=== PATIENT | female | born 1985 | race Caucasian/White ===

== ENCOUNTER 2016-08-27 11:36 | Emergency (ER) | payer SELFPAY ==
[~2016-08-27] VITALS: Ht 152.4 cm; Wt 62.2 kg
[2016-08-27 11:55] VITALS: BP 112/76; PULSE 94; RESP 12; TEMP 99; O2SAT 99
--- NOTE | 2016-08-27 12:02 | PD ---
HPI Chief Complaint: Reel Man Problem/Complaint Time Seen by Provider: 11:44 Travel History International Travel<30 days: No Contact w/Intl Traveler<30days: No Traveled to known affect area: No History of Present Illness HPI The patient is a 30-year-old female who presents emergency Department for vaginal discharge. The patient thinks she had a miscarriage 3-1/2 weeks ago , states that she was approximately 6 weeks when she developed vaginal bleeding and then passed what she thought were probably secondary infection. The patient states that her vaginal bleeding had resolved and she was doing well until she developed vaginal discharge 2 days ago. The vaginal discharge is white and is associated with a foul smell. She does have a history of similar discharge in the past secondary to Trichomonas. The patient states she recently found out her significant other was having an affair, she is worried that she has associated transmitted infection. She denies any dysuria, frequency, or urgency. PFSH Past Medical History Bipolar Disorder: Yes Anxiety: Yes Depression: Yes Diabetes: No Diminished Hearing: No Psychiatric: Yes (BIPOLAR, PTSD, CUTTING) Immunizations Current: Yes Schizophrenia: Yes ?: Not LMP: june 14 Menopausal: No : 5 Para: 2 Miscarriage: 0 : 3 Dilation and Curettage (D&C): Yes (X1) Social History Alcohol Use: No Tobacco Use: Yes Substance Use: No Allergies-Medications (Allergen,Severity, Reaction): Coded Allergies: Latex (Verified Allergy, Mild, VAGINAL BACTERIAL INFECTION, 06/14/15) ONLY WITH CONDOMS Penicillin (Verified Allergy, Mild, Rash, 06/14/15) Reported Meds & Prescriptions Reported Meds & Active Scripts Active No Active Prescriptions or Reported Medications Review of Systems Except as stated in HPI: all other systems reviewed are Neg General / Constitutional: No: Fever HENT: Positive: Other (cervical lymphadenopathy) Cardiovascular: No: Chest Pain or Discomfort Respiratory: No: Shortness of Breath Gastrointestinal: No: Nausea, Vomiting, Abdominal Pain Genitourinary: Positive: Pelvic Pain, Discharge, No: Dysuria, Vaginal Bleeding Physical Exam Narrative GENERAL: Awake, alert, pleasant 30-year-old female who appears her stated age and is in no acute respiratory distress. SKIN: Focused skin assessment warm/dry. HEAD: Atraumatic. Normocephalic. EYES: No injection or drainage. ENT: No nasal bleeding or discharge. Mucous membranes pink and moist. NECK: Trachea midline. No JVD. GASTROINTESTINAL: Abdomen soft, non-tender, nondistended. No rebound tenderness. Back: No CVA tenderness. Pelvic: Exam was performed in the presence of a female nurse. External examination reveals no rashes or lesions. Speculum examination reveals scant thin white discharge in vaginal wall. Cervix is approximate 1 cm x 0.5 cm, there are some cervical changes with mild erythema from the 10 o'clock position to the 2 o'clock position. MUSCULOSKELETAL: No obvious deformities. No clubbing. No cyanosis. No edema. NEUROLOGICAL: Awake and alert. No obvious cranial nerve deficits. Motor grossly within normal limits. Normal speech. PSYCHIATRIC: Appropriate mood and affect; insight and judgment normal. Data Data Last Documented VS Vital Signs Date Time Temp Pulse Resp B/P Pulse Ox O2 Delivery O2 Flow Rate FiO2 08/27/16 11:55 99.0 94 12 112/76 99 Orders Gc And Chlamydia Pcr (08/27/16 11:49) Wet Prep Profile (08/27/16 11:49) Urinalysis - C+S If Indicated (08/27/16 11:49) Ed Urine Pregnancytest Poc (08/27/16 11:49) Azithromycin Powd Pack (Zithromax Powd P (08/27/16 13:30) Ceftriaxone Inj (Rocephin Inj) (08/27/16 13:30) Lidocaine 1% Inj (50 Ml) (Xylocaine 1% I (08/27/16 13:30) Labs Laboratory Tests Test 08/27/16 08/27/16 12:00 13:15 Urine Collection Type CLEAN CATCH Urine Color YELLOW Urine Turbidity CLEAR Urine pH 6.5 Urine Specific [place] 1.006 Urine Protein NEG mg/dL Urine Glucose (UA) NEG mg/dL Urine Ketones NEG mg/dL Urine Occult Blood NEG Urine Nitrite NEG Urine Bilirubin NEG Urine Leukocyte Esterase TRACE Urine WBC 0-2 /hpf Urine Squamous Epithelial 0-5 /hpf Cells Microscopic Urinalysis Comment CULT NOT INDICATED Urine Collection Time 12:00 Clue Cells (Wet Prep) NONE SEEN Vaginal Trichomonas (Wet Prep) NONE SEEN Vaginal Yeast (Wet Prep) NONE SEEN MDM Medical Decision Making Medical Screen Exam Complete: Yes Emergency Medical Condition: Yes Medical Record Reviewed: Yes Differential Diagnosis Differential diagnosis includes endometriosis, PID, cervicitis, vaginitis, trismus, Bactrim vaginosis, yeast infection, UTI, . Narrative Course A pelvic exam was performed in the presence of a female nurse. Bedside UA test was obtained. UA was sent to lab. Wet prep and gonorrhea/ chlamydia were sent to lab. The patient was advised that she has an abnormal appearing cervix from the 10:00 to 2 o'clock position, does have a history of abnormal Pap smears in the past. She is advised to follow-up with a ribbing machine operator for a Pap smear. Patient states she could not wait for the wet prep results, therefore, we will call if wet prep is positive. I do discussion regarding possibility of gonorrhea and Chlamydia, patient would like to be treated. Therefore, she was administered Rocephin 250 mg IM and Zithromax 1 g by mouth. Diagnosis Primary Impression: Vaginal discharge Referrals: [facility] call for appointment Patient Instructions: General Instructions Additional Instructions: Follow-up at the [facility]. Return if symptoms worsen or progress. Med/Other Pt SpecificInfo: No Change to Meds Scripts No Active Prescriptions or Reported Meds Disposition: 01 DISCHARGE HOME Condition: Stable Eamon Wang MD Aug 27, 2016 12:02
[2016-08-27 12:23] LABS: BLOOD, URINE NEG (NEG); GLUCOSE,URINE NEG (NEG); KETONE, URINE NEG (NEG); NITRITE,URINE NEG (NEG); PH, URINE 6.5 (5.0-8.5)
[2016-08-27 12:27] LABS: METHOD OF COLLECTION CLEAN CATCH; URINE COLOR YELLOW (YELLW/STRAW)
[2016-08-27 12:28] LABS: COMMENT (UR) CULT NOT INDICATED; CULTURE IF INDICATED CULT NOT INDICATED; SQUAMOUS EPITHELIAL CELL URINE 0-5 /hpf (0-5); WBC, URINE 0-2 /hpf (0-5)
[2016-08-27] MEDS ORDERED: cefTRIAXone 250 MG VIAL IM ONE (13:30)
[2016-08-27] MEDS ORDERED: AZITHROMYCIN PWD FOR SUSP 1 GM PACKET PO ONE (13:30)
[2016-08-27] MEDS ORDERED: LIDOCAINE HCL 1% 50 ML VIAL IM ONE (13:30)
[2016-08-27 13:57] VITALS: BP 122/72
[2016-08-27 17:18] LABS: CHLAMYDIA PCR NOT DETECTED (NOT DETECT); NEISSERIA PCR NOT DETECTED (NOT DETECT)
== END 2016-08-27 14:44 | disposition home or self-care (01) ==
LOC: PHED 11:36
DX: N89.8 Other specified noninflammatory disorders of vagina (principal); Z72.0 Tobacco use; Z86.59 Personal history of other mental and behavioral disorders
CPT/HCPCS: 81001; 84703; 87210; 87491; 87591; 96372; 99284; J0696

== ENCOUNTER 2017-02-17 13:56 | Emergency (ER) | payer SELFPAY ==
[~2017-02-17] VITALS: Ht 152.4 cm; Wt 61.0 kg
[2017-02-17 14:01] VITALS: BP 120/70; PULSE 121; RESP 16; TEMP 99; O2SAT 99
[2017-02-17] MEDS ORDERED: BENZ100 PO (14:39)
[2017-02-17] MEDS ORDERED: AZIT250T3 PO (14:39)
--- NOTE | 2017-02-17 14:43 | PD ---
HPI Chief Complaint: Cold / Flu Symptoms Time Seen by Provider: 14:21 Travel History International Travel<30 days: No Contact w/Intl Traveler<30days: No Traveled to known affect area: No History of Present Illness HPI 31-year-old female here with productive cough and colored sputum. She reports symptoms began approximate 7-10 days ago with body aches, fever, cough. The colored sputum started several days ago. Symptoms severity is moderate. No aggravating or alleviating factors. PFSH Past Medical History Bipolar Disorder: Yes Anxiety: Yes Depression: Yes Diabetes: No Diminished Hearing: No Psychiatric: Yes (BIPOLAR, PTSD, CUTTING) Immunizations Current: Yes Schizophrenia: Yes Tetanus Vaccination: < 5 Years Influenza Vaccination: No ?: Not LMP: 02/03/17 Menopausal: No : 5 Para: 2 Miscarriage: 0 : 3 Dilation and Curettage (D&C): Yes (X1) Social History Alcohol Use: No Tobacco Use: Yes (/2 PPD) Substance Use: No Allergies-Medications (Allergen,Severity, Reaction): Coded Allergies: latex (Unverified Allergy, Mild, VAGINAL BACTERIAL INFECTION, 02/17/17) ONLY WITH CONDOMS penicillin G (Unverified Allergy, Mild, Rash, 02/17/17) Reported Meds & Prescriptions Reported Meds & Active Scripts Active Tessalon Perles (Benzonatate) 100 Mg Cap 200 Mg PO TID PRN Azithromycin 250 Mg Tab 250 Mg PO DIRECTED Take 2 tabs (500 mg) on day 1 then 1 tab daily x 4 days. Review of Systems Except as stated in HPI: all other systems reviewed are Neg General / Constitutional: Positive: Fever Eyes: No: Visual changes HENT: No: Headaches Cardiovascular: No: Chest Pain or Discomfort Respiratory: Positive: Cough Gastrointestinal: No: Abdominal Pain Genitourinary: No: Dysuria Physical Exam Narrative GENERAL: alert female. non toxic appearing. SKIN: Warm and dry. HEAD: Normocephalic. EYES: No injection or drainage. THROAT: Pharyngeal erythema. No tonsillar hypertrophy or exudate. Uvula is midline. Airway is patent. NECK: Supple, trachea midline. No meningismus CARDIOVASCULAR: Regular rate and rhythm RESPIRATORY: Breath sounds equal bilaterally. No accessory muscle use. Rhonchorous cough. GASTROINTESTINAL: Abdomen soft, non-tender, nondistended. MUSCULOSKELETAL: No cyanosis, or edema. BACK: Nontender without obvious deformity. No CVA tenderness. Data Data Last Documented VS Vital Signs Date Time Temp Pulse Resp B/P (MAP) Pulse Ox O2 Delivery O2 Flow Rate FiO2 02/17/17 14:18 Room Air 02/17/17 14:01 99.0 121 16 120/70 (87) 99 MDM Medical Decision Making Medical Screen Exam Complete: Yes Emergency Medical Condition: Yes Differential Diagnosis Influenza, bronchitis, pneumonia, strep pharyngitis Narrative Course 31-year-old female with productive cough, fever, colored sputum for several days. Symptom onset has been greater than 10 days. Patient has a rhonchorous sounding cough. She'll be treated with azithromycin Diagnosis Primary Impression: Bronchitis Referrals: Primary Care Physician Departure Forms: Tests/Procedures, Work Release Enter return to work date: Feb 20, 2017 Additional Instructions: Tylenol and ibuprofen for body aches and fever. Stable hydrated by drinking plenty of fluids. Scripts Benzonatate (Tessalon Perles) 100 Mg Cap 200 MG PO TID Y for COUGH, #14 CAP 0 Refills Prov: Sharda Zimmerman 02/17/17 Azithromycin (Azithromycin) 250 Mg Tab 250 MG PO DIRECTED for Infection, #6 TAB 0 Refills Take 2 tabs (500 mg) on day 1 then 1 tab daily x 4 days. Prov: Sharda Zimmerman 02/17/17 Disposition: 01 DISCHARGE HOME Condition: Stable Sharda Zimmerman Feb 17, 2017 14:43
== END 2017-02-17 14:51 | disposition home or self-care (01) ==
LOC: PHEFT 13:56
DX: J40 Bronchitis, not specified as acute or chronic (principal); F20.9 Schizophrenia, unspecified; F31.9 Bipolar disorder, unspecified; F43.10 Post-traumatic stress disorder, unspecified; F17.200 Nicotine dependence, unspecified, uncomplicated
CPT/HCPCS: 99284

== ENCOUNTER 2017-04-01 18:19 | Emergency (ER) | payer MEDICAID ==
[~2017-04-01] VITALS: Ht 152.4 cm; Wt 62.1 kg
[~2017-04-01 18:19] MED LIST: AZIT250T3 PO; BENZ100 PO
[2017-04-01 18:29] VITALS: BP 128/63; PULSE 79; RESP 20; TEMP 98.7; O2SAT 99
--- NOTE | 2017-04-01 19:29 | PD ---
HPI Chief Complaint: Flank/Kidney Pain Time Seen by Provider: 19:13 Travel History International Travel<30 days: No Contact w/Intl Traveler<30days: No Traveled to known affect area: No History of Present Illness HPI The patient is a 31-year-old female who presents to the emergency department for low back pain, pelvic pain, dysuria, and discharge of 3 weeks' duration. The patient complains of bilateral lower back pain, lower abdominal discomfort and pelvic discomfort. She also complains of white vaginal discharge , has a history of similar discharge in the past with a diagnosis of Trichomonas. The patient is sexually active, no condoms or control, she is . She also complains of dysuria, frequency, and urgency. She denies any nausea or vomiting. The last menstrual cycle was at the end of February. Symptoms are moderate. There are no alleviating or exacerbating factors. She denies any associated fever, chills, or sweats. PFSH Past Medical History Bipolar Disorder: Yes Anxiety: Yes Depression: Yes Diabetes: No Diminished Hearing: No Psychiatric: Yes (BIPOLAR, PTSD, CUTTING) Immunizations Current: Yes Schizophrenia: Yes ?: Unknown Menopausal: No : 5 Para: 2 Miscarriage: 0 : 3 Dilation and Curettage (D&C): Yes (X1) Social History Alcohol Use: No Tobacco Use: Yes (1/2 PPD) Substance Use: No Allergies-Medications (Allergen,Severity, Reaction): Coded Allergies: latex (Unverified Allergy, Mild, VAGINAL BACTERIAL INFECTION, 04/01/17) ONLY WITH CONDOMS penicillin G (Unverified Allergy, Mild, Rash, 04/01/17) Reported Meds & Prescriptions Reported Meds & Active Scripts Active Tessalon Perles (Benzonatate) 100 Mg Cap 200 Mg PO TID PRN Azithromycin 250 Mg Tab 250 Mg PO DIRECTED Take 2 tabs (500 mg) on day 1 then 1 tab daily x 4 days. Review of Systems Except as stated in HPI: all other systems reviewed are Neg General / Constitutional: No: Fever Gastrointestinal: No: Nausea, Vomiting, Abdominal Pain Genitourinary: Positive: Urgency, Frequency, Dysuria, Pelvic Pain, Discharge, No: Vaginal Bleeding Skin: No Rash Physical Exam Narrative GENERAL: Awake, alert, nontoxic-appearing 31-year-old female who appears her stated age and is in no acute respiratory distress. SKIN: Focused skin assessment warm/dry. HEAD: Atraumatic. Normocephalic. EYES: No injection or drainage. GASTROINTESTINAL: Abdomen soft, mild suprapubic discomfort. No guarding or rigidity. Back: No CVA tenderness. Genitourinary: The exam was performed in the presence of a female nurse. External examination reveals no rashes or lesions. Speculum examination reveals scant thin white discharge in vaginal vault. Cervix is fish mouthed, mild cervical changes at 9 o'clock position with erythema. Mild cervical motion tenderness. No adnexal tenderness. MUSCULOSKELETAL: No obvious deformities. No clubbing. No cyanosis. No edema. NEUROLOGICAL: Awake and alert. No obvious cranial nerve deficits. Motor grossly within normal limits. Normal speech. PSYCHIATRIC: Appropriate mood and affect; insight and judgment normal. Data Data Last Documented VS Vital Signs Date Time Temp Pulse Resp B/P (MAP) Pulse Ox O2 Delivery O2 Flow Rate FiO2 04/01/17 18:29 98.7 79 20 128/63 (84) 99 Orders Orders Gc And Chlamydia Pcr (04/01/17 19:22) Wet Prep Profile (04/01/17 19:22) Urinalysis - C+S If Indicated (04/01/17 19:22) Ed Urine Pregnancytest Poc (04/01/17 19:22) Azithromycin Powd Pack (Zithromax Powd P (04/01/17 20:30) Rocephin 250mg Vial Im X 1 (04/01/17 20:30) Lidocaine 1% Inj (50 Ml) (Xylocaine 1% I (04/01/17 20:30) Labs Laboratory Tests Test 04/01/17 19:28 04/01/17 19:45 Urine pH 6.5 Urine Protein NEG mg/dL Urine Glucose (UA) NEG mg/dL Urine Ketones NEG mg/dL Urine Occult Blood NEG Urine Nitrite NEG Urine Bilirubin NEG Urine Leukocyte Esterase NEG Clue Cells (Wet Prep) NONE SEEN Vaginal Trichomonas (Wet Prep) NONE SEEN Vaginal Yeast (Wet Prep) NONE SEEN MDM Medical Decision Making Medical Screen Exam Complete: Yes Emergency Medical Condition: Yes Medical Record Reviewed: Yes Interpretation(s) Laboratory Tests Test 04/01/17 19:28 04/01/17 19:45 Urine pH 6.5 Urine Protein NEG mg/dL Urine Glucose (UA) NEG mg/dL Urine Ketones NEG mg/dL Urine Occult Blood NEG Urine Nitrite NEG Urine Bilirubin NEG Urine Leukocyte Esterase NEG Clue Cells (Wet Prep) NONE SEEN Vaginal Trichomonas (Wet Prep) NONE SEEN Vaginal Yeast (Wet Prep) NONE SEEN Differential Diagnosis Differential diagnosis includes PID, cervicitis, UTI, vaginitis, pyelonephritis , ectopic , . Narrative Course UA was sent to lab. UA bedside test was obtained. A pelvic exam was performed, gonorrhea/PCR was sent to lab and prep was sent to lab. Bedside UA test was negative. Wet prep was negative. The patient has pelvic pain 3 weeks duration, will be treated for possible cervicitis with Rocephin and Zithromax. Gonorrhea and chlamydia are pending. She is advised to follow- up with her primary physician and/or the [facility]. Diagnosis Primary Impression: Pelvic pain in female Referrals: [facility] Patient Instructions: General Instructions Additional Instructions: Follow-up with your primary physician. Return if symptoms worsen or progress. Follow-up with the women's care clinic. Follow-up with a hospital television rental clerk for outpatient Pap smear. Med/Other Pt SpecificInfo: No Change to Meds Disposition: 01 DISCHARGE HOME Condition: Stable Eamon Wang MD Apr 01, 2017 19:29
[2017-04-01 19:58] LABS: BILIRUBIN, URINE NEG (NEG); BLOOD, URINE NEG (NEG); GLUCOSE,URINE NEG (NEG); KETONE, URINE NEG (NEG); NITRITE,URINE NEG (NEG); PH, URINE 6.5 (5.0-8.5); URINE LEUKOCYTE ESTERASE NEG (NEG)
[2017-04-01] MEDS ORDERED: AZITHROMYCIN PWD FOR SUSP 1 GM PACKET PO ONE (20:30)
[2017-04-01] MEDS ORDERED: LIDOCAINE HCL 1% 50 ML VIAL IM ONE (20:30)
[2017-04-01] MEDS ORDERED: cefTRIAXone 250 MG VIAL IM ONE (20:30)
[2017-04-01 20:39] LABS: URINE COLOR YELLOW (YELLW/STRAW); WBC, URINE 0-2 /hpf (0-5)
[2017-04-01] MEDS ORDERED: LIDOCAINE HCL 1% PF 5 ML AMPULE ONE (20:45)
[2017-04-01 21:35] VITALS: BP 130/78
[2017-04-02] MEDS ORDERED: DOXY100C PO (15:25)
[2017-04-02] MEDS ORDERED: HYDR-3516 PO (15:25)
== END 2017-04-01 21:39 | disposition home or self-care (01) ==
LOC: PHED 18:19
DX: R10.2 Pelvic and perineal pain (principal); N89.8 Other specified noninflammatory disorders of vagina; M54.5 Low back pain; R30.0 Dysuria; R35.0 Frequency of micturition; R39.15 Urgency of urination; F17.200 Nicotine dependence, unspecified, uncomplicated; Z86.59 Personal history of other mental and behavioral disorders
CPT/HCPCS: 81001; 84703; 87210; 87491; 87591; 96372; 99284; J0696

== ENCOUNTER 2017-04-02 12:35 | Emergency (ER) | payer MEDICAID ==
[~2017-04-02] VITALS: Ht 152.4 cm; Wt 61.7 kg
[2017-04-02 12:39] VITALS: BP 133/85; PULSE 90; RESP 18; TEMP 98.3; O2SAT 100
--- NOTE | 2017-04-02 13:20 | PD ---
HPI Chief Complaint: Abdominal Pain Time Seen by Provider: 13:06 Travel History International Travel<30 days: No Contact w/Intl Traveler<30days: No Traveled to known affect area: No History of Present Illness HPI This 31-year-old female is complaining of lower abdominal pain. She's been having low back pain and lower abdominal pain for about 3 weeks. She was seen last night in the emergency department. Wet prep profile was negative as well as gonorrhea and chlamydia. It was thought that she had PID and she was given Rocephin and Zithromax. She says the pain is not any better. She is having bilateral lower abdominal pain and pain in the back. She is 9 para 2. She started having some vaginal bleeding today. It is a bit early for her period. PFSH Past Medical History Bipolar Disorder: Yes Anxiety: Yes Depression: Yes Diabetes: No Diminished Hearing: No Psychiatric: Yes (BIPOLAR, PTSD, CUTTING) Immunizations Current: Yes Schizophrenia: Yes Tetanus Vaccination: < 5 Years Influenza Vaccination: No ?: Not LMP: NOW Menopausal: No : 9 Para: 2 Miscarriage: 2 : 5 Dilation and Curettage (D&C): Yes (X1) Social History Alcohol Use: Yes (WEEKENDS) Tobacco Use: Yes (/ PPD) Substance Use: No Allergies-Medications (Allergen,Severity, Reaction): Coded Allergies: latex (Unverified Allergy, Mild, VAGINAL BACTERIAL INFECTION, 04/02/17) ONLY WITH CONDOMS penicillin G (Unverified Allergy, Mild, Rash, 04/02/17) Reported Meds & Prescriptions Reported Meds & Active Scripts Active Review of Systems Except as stated in HPI: all other systems reviewed are Neg General / Constitutional: Positive: Chills, No: Fever Eyes: No: Diploplia, Blurred Vision HENT: No: Headaches, Vertigo Cardiovascular: No: Chest Pain or Discomfort, Palpitations Respiratory: No: Shortness of Breath Gastrointestinal: No: Nausea, Vomiting, Diarrhea Genitourinary: Positive: Pelvic Pain Musculoskeletal: No: Arthralgias Skin: No Rash, No Itching Hematologic/Lymphatic: No: Easy Bruising Physical Exam Narrative GENERAL: Well-developed female SKIN: Focused skin assessment warm/dry. HEAD: Atraumatic. Normocephalic. EYES: Pupils equal and round. No scleral icterus. No injection or drainage. ENT: No nasal bleeding or discharge. Mucous membranes pink and moist. NECK: Trachea midline. No JVD. CARDIOVASCULAR: Regular rate and rhythm. No murmur appreciated. RESPIRATORY: No accessory muscle use. Clear to auscultation. Breath sounds equal bilaterally. GASTROINTESTINAL: Abdomen soft, non-tender, nondistended. Hepatic and splenic margins not palpable. Pelvic: Cervical os is closed. There is some slight bleeding. There is pain with movement of the cervix. There is bilateral adnexal and uterine tenderness. No masses are felt MUSCULOSKELETAL: No obvious deformities. No clubbing. No cyanosis. No edema. NEUROLOGICAL: Awake and alert. No obvious cranial nerve deficits. Motor grossly within normal limits. Normal speech. PSYCHIATRIC: Appropriate mood and affect; insight and judgment normal. Data Data Last Documented VS Vital Signs Date Time Temp Pulse Resp B/P (MAP) Pulse Ox O2 Delivery O2 Flow Rate FiO2 04/02/17 12:53 20 04/02/17 12:39 98.3 90 133/85 (101) 100 Orders Orders Complete Blood Count With Diff (04/02/17 13:18) Basic Metabolic Panel (Bmp) (04/02/17 13:18) Urinalysis - C+S If Indicated (04/02/17 13:18) Beta Hcg (Quant/Titer) (04/02/17 13:18) Sodium Chlor 0.9% 1000 Ml Inj (Ns 1000 M (04/02/17 13:45) Ondansetron Inj (Zofran Inj) (04/02/17 13:45) Morphine Inj (Morphine Inj) (04/02/17 13:45) Ceftriaxone Inj (Rocephin Inj) (04/02/17 14:15) Ct Abd/Pel W Iv Contrast(Rout) (04/02/17 14:12) Iohexol 350 Inj (Omnipaque 350 Inj) (04/02/17 14:42) Labs Laboratory Tests Test 04/02/17 13:30 White Blood Count 13.8 TH/MM3 Red Blood Count 4.53 MIL/MM3 Hemoglobin 13.3 GM/DL Hematocrit 39.3 % Mean Corpuscular Volume 86.9 FL Mean Corpuscular Hemoglobin 29.4 PG Mean Corpuscular Hemoglobin Concent 33.8 % Red Cell Distribution Width 12.8 % Platelet Count 267 TH/MM3 Mean Platelet Volume 8.8 FL Neutrophils (%) (Auto) 72.8 % Lymphocytes (%) (Auto) 20.6 % Monocytes (%) (Auto) 4.1 % Eosinophils (%) (Auto) 2.1 % Basophils (%) (Auto) 0.4 % Neutrophils # (Auto) 10.0 TH/MM3 Lymphocytes # (Auto) 2.8 TH/MM3 Monocytes # (Auto) 0.6 TH/MM3 Eosinophils # (Auto) 0.3 TH/MM3 Basophils # (Auto) 0.1 TH/MM3 CBC Comment DIFF FINAL Differential Comment Urine Collection Type CLEAN CATCH Urine Color YELLOW Urine Turbidity CLEAR Urine pH 6.5 Urine Specific [place] 1.007 Urine Protein NEG mg/dL Urine Glucose (UA) NEG mg/dL Urine Ketones NEG mg/dL Urine Occult Blood MOD Urine Nitrite NEG Urine Bilirubin NEG Urine Leukocyte Esterase NEG Urine RBC 10-14 /hpf Urine WBC 0-2 /hpf Urine Squamous Epithelial Cells > 8 /hpf Microscopic Urinalysis Comment CULT NOT INDICATED Urine Collection Time 13:30 Blood Urea Nitrogen 8 MG/DL Creatinine 0.63 MG/DL Random Glucose 79 MG/DL Calcium Level 8.3 MG/DL Sodium Level 140 MEQ/L Potassium Level 3.6 MEQ/L Chloride Level 108 MEQ/L Carbon Dioxide Level 25.7 MEQ/L Anion Gap 6 MEQ/L Estimat Glomerular Filtration Rate 112 ML/MIN Human Chorionic Gonadotropin, Quant 2 MIU/ML [facility] Medical Decision Making Medical Screen Exam Complete: Yes Emergency Medical Condition: Yes Medical Record Reviewed: Yes Differential Diagnosis Differential includes cervicitis, PID, ectopic , diverticulitis Narrative Course Hemoglobin is 13 with a white count of 13,000. Her beta titer is 2. Patient does have elevation of her white count to a CT scan to assess for possible abscess or diverticulitis. She has been given additional Rocephin and will be released with doxycycline and a few tablets of Lortab Diagnosis Primary Impression: Pelvic inflammatory disease Departure Forms: Tests/Procedures, Work Release Enter return to work date: Apr 03, 2017 Scripts Hydrocodone-Acetaminophen (Hydrocodone-Acetaminophen) 5-325 mg Tab 1 TAB PO Q4H Y for PAIN, #12 TAB 0 Refills Prov: Michael Barnes MD 04/02/17 Doxycycline Hyclate (Doxycycline Hyclate) 100 Mg Cap 100 MG PO BID for Infection for 10 Days, #20 CAP 0 Refills Prov: Michael Barnes MD 04/02/17 Disposition: 01 DISCHARGE HOME Condition: Stable Michael Barnes MD Apr 02, 2017 13:20
[2017-04-02 13:39] LABS: BILIRUBIN, URINE NEG (NEG); BLOOD, URINE MOD (NEG); GLUCOSE,URINE NEG (NEG); KETONE, URINE NEG (NEG); NITRITE,URINE NEG (NEG); PH, URINE 6.5 (5.0-8.5); URINE LEUKOCYTE ESTERASE NEG (NEG)
[2017-04-02 13:44] LABS: URINE COLOR YELLOW (YELLW/STRAW)
[2017-04-02 13:45] LABS: SQUAMOUS EPITHELIAL CELL URINE > 8 /hpf (0-5); WBC, URINE 0-2 /hpf (0-5)
[2017-04-02] MEDS ORDERED: ONDANSETRON HCL 4 MG/2 ML VIAL IV PUSH ONE (13:45)
[2017-04-02] MEDS ORDERED: MORPHINE SULFATE 4 MG/ML INJ IV PUSH ONE (13:45)
[2017-04-02] MEDS ORDERED: SODIUM CHLOR 0.9% 1000 ML INJ 1,000 ML IV ONE (13:45)
[2017-04-02 13:59] LABS: CALCIUM 8.3 MG/DL (8.5-10.1)
[2017-04-02 14:00] LABS: BASOPHIL # 0.1 TH/MM3 (0-0.2); BASOPHIL % 0.4 % (0.0-2.0); BICARBONATE 25.7 MEQ/L (21.0-32.0); EOSINOPHIL # 0.3 TH/MM3 (0-0.4); EOSINOPHIL % 2.1 % (0.0-4.0); HEMATOCRIT 39.3 % (35.0-46.0); HEMOGLOBIN 13.3 GM/DL (11.6-15.3); LYMPH % 20.6 % (9.0-44.0); LYMPHOCYTE # 2.8 TH/MM3 (1.0-4.8); MEAN CELL VOLUME 86.9 FL (80.0-100.0); MEAN CORPUSCULAR HEMOGLOBIN 29.4 PG (27.0-34.0); MEAN CORPUSCULAR HGB CONC 33.8 % (32.0-36.0); MEAN PLATELET VOLUME 8.8 FL (7.0-11.0); MONO % 4.1 % (0.0-8.0); MONOCYTE # 0.6 TH/MM3 (0-0.9); NEUT % 72.8 % (16.0-70.0); PLATELET COUNT 267 TH/MM3 (150-450); RED BLOOD COUNT 4.53 MIL/MM3 (4.00-5.30); RED CELL DISTRIBUTION WIDTH 12.8 % (11.6-17.2); WHITE BLOOD COUNT 13.8 TH/MM3 (4.0-11.0)
[2017-04-02 14:03] LABS: CREATININE 0.63 MG/DL (0.50-1.00)
[2017-04-02] MEDS ORDERED: cefTRIAXone INJ 1,000 MG in SODIUM CHLORIDE 0.9% INJ 100 ML IV ONE (14:15)
[2017-04-02] MEDS ORDERED: IOHEXOL 350 MG/ML 10 ML VIAL (for RAD DIAG) IVCONTRAST ONE (14:42)
--- NOTE | 2017-04-02 15:06 | RADRPT ---
EXAM DATE/TIME: 04/02/2017 14:36 [place] COMPARISON: No previous studies available for comparison. INDICATIONS : Lower abdominal pain and low back pain x 3 weeks. IV CONTRAST: 85 cc Omnipaque 350 (iohexol) IV ORAL CONTRAST: No oral contrast ingested. RADIATION DOSE: 7.21 CTDIvol (mGy) MEDICAL HISTORY : Schizophrenia. SURGICAL HISTORY : D&C. Multiple abortions. ENCOUNTER: Initial ACUITY: 3 weeks PAIN SCALE: 10/10 LOCATION: Bilateral lower quadrant TECHNIQUE: Volumetric scanning of the abdomen and pelvis was performed. Using automated exposure control and ad justment of the mA and/or kV according to patient size, radiation dose was kept as low as reasonably achievable to obtain optimal diagnostic quality images. DICOM format image data is available electro nically for review and comparison. FINDINGS: LOWER LUNGS: The visualized lower lungs are clear. LIVER: Homogeneous density without lesion. There is no dilation of the biliary tree. No calcified gallston es. SPLEEN: Normal size without lesion. PANCREAS: Within normal limits. KIDNEYS: Normal in size and shape. There is no mass, stone or hydronephrosis. ADRENAL GLANDS: Within normal limits. VASCULAR: There is no aortic aneurysm. BOWEL/MESENTERY: The stomach, small bowel, and colon demonstrate no acute abnormality. There is no free intraperitone al air or fluid. ABDOMINAL WALL: Within normal limits. RETROPERITONEUM: There is no lymphadenopathy. BLADDER: No wall thickening or mass. REPRODUCTIVE: Within normal limits. INGUINAL: There is no lymphadenopathy or hernia. MUSCULOSKELETAL: Within normal limits for patient age. CONCLUSION: Normal examination. Sanjiv Kaiser MD on April 02, 2017 at 14:59 Board Certified Radiologist. This report was verified electronically.
[2017-04-02] MEDS ORDERED: DOXY100C PO (15:25)
[2017-04-02] MEDS ORDERED: HYDR-3516 PO (15:25)
== END 2017-04-02 15:50 | disposition home or self-care (01) ==
LOC: PHED 12:35
DX: N73.9 Female pelvic inflammatory disease, unspecified (principal); F31.9 Bipolar disorder, unspecified; F20.9 Schizophrenia, unspecified; F17.210 Nicotine dependence, cigarettes, uncomplicated; Z88.0 Allergy status to penicillin; Z91.040 Latex allergy status
CPT/HCPCS: 74177; 80048; 81001; 84702; 85025; 96361; 96365; 96375; 99284; J0696; J2270; J2405; J7030; Q9967